=== PATIENT | female | born 1985 | race Caucasian/White ===

== ENCOUNTER 2020-04-30 10:33 | Emergency (ER) | payer BC, SELFPAY ==
--- NOTE | 2020-04-30 10:42 | ED.URI ---
HPI - URI/Sore Throat General Chief Complaint: Upper Respiratory Infection Stated Complaint: SOB/chest pressure Time Seen by Provider: 04/30/20 10:47 Source: patient and RN notes reviewed Mode of arrival: ambulatory Limitations: no limitations History of Present Illness HPI Narrative: 34 year old female who presents to [facility] care with complaints of cough, sore throat, headache for the past 6 days and also 2 day history of feeling some shortness of breath, denies any acute dyspnea.Patient states that she has recently traveled to [place] with her family, states no one else in household is ill at this time. Patient has event nonlabored respirations,no tachypnea or accessory muscle use, SAO2 100% on room air. MD elicited complaint: cough, sore throat and other (headache) Onset (ago): day(s) (6) Consistency: constant Severity: mild Pain scale (0-10): 2 Able to tolerate fluids by mouth: Yes Exacerbating factors: swallowing Relieving factors: nothing Context: recent travel Associated symptoms: headache, cough and shortness of breath Treatments prior to arrival: acetaminophen Related Data Home Medications Medication Instructions Recorded Confirmed famotidine [Pepcid] 20 mg PO BID 04/30/20 04/30/20 Allergies Allergy/AdvReac Type Severity Reaction Status Date / Time No Known Allergies Allergy Unknown Verified 04/30/20 11:01 Review of Systems Review of Systems: Narrative: CONSTITUTIONAL: Denies fever, chills, or sweats. EYES: Denies visual changes, redness, or discharge. ENT: Denies rhinorrhea, congestion,positive sore throat, no otalgia. CARDIOVASCULAR: Denies chest pain, palpitations, or edema. RESPIRATORY: Denies cough or acute dyspnea, reports feeling short of breath GASTROINTESTINAL: Denies abdominal pain, nausea, vomiting, or diarrhea. GENITOURINARY: Denies dysuria or hematuria. SKIN: Denies rash or itching. MUSCULOSKELETAL: Denies back pain, joint pain, or myalgia. NEUROLOGIC: positive headache, no numbness, or weakness. PSYCHIATRIC: Denies anxiety or depression. All systems reviewed & are unremarkable except as noted in HPI and below PMFSH Past Medical History Medical History (Updated 04/30/20 @ 10:59 by Latonya Nino NP) GERD (gastroesophageal reflux disease) Surgical History Surgical History (Updated 07/22/20 @ 10:59 by Latonya Nino NP) Hx of cholecystectomy Social History Social History (Updated 04/30/20 @ 10:59 by Latonya Nino NP) Smoking status: Never smoker Living arrangements: with family Gender identity (if verbalized by the patient): Female Comments At time of signature, agree with nursing past medical, surgical, social history. There is no relevant family history pertinent to the presenting complaint Exam Narrative: Exam Narrative: GENERAL: Well-appearing, well-nourished, and in no acute distress. HEAD: Normocephalic, atraumatic. EYES: PERRLA and EOMI. ENT: Nares clear, no rhinorrhea or epistaxis. Mucous membranes moist.TM's normal with good light relfex, throat is minimally red with no exudates, lesions or tonsil enlargement. NECK: Supple.mild lymphadenopathy, denies any tenderness to neck CHEST: Clear to auscultation. No respiratory distress.no cough, SAO2 100% on room air HEART: Regular rate and rhythm. No murmur heard. Normal peripheral pulses. ABDOMEN: Soft, nontender, nondistended, normal active bowel sounds. EXTREMITIES: Normal range of motion. No edema. SKIN: Warm, dry, no rash. NEURO: No focal deficits. Alert and oriented x3. MDM - URI/Sore Throat Differential Diagnosis Differential diagnosis: Likely upper respiratory infection, viral infection, pharyngitis and other (strep pharyngitis, COVID) Medical Records Attestation: I reviewed the patient's medical records. Lab Data Attestation: I reviewed the patient's lab results. Lab results narrative: strep screen Critical Care Time Critical Care Time Critical Care Time: No Discharge Plan Discharge Patient
[2020-04-30 10:44] VITALS: BP 118/74; PULSE 86; RESP 20; TEMP 36.7; O2SAT 100
== END 2020-04-30 11:16 | disposition home or self-care (01) ==
PROVIDERS: Emergency Provider Registered Nurse; PCP Nurse Practitioner Adult Health
DX: J02.9 Acute pharyngitis, unspecified (principal); K21.9 Gastro-esophageal reflux disease without esophagitis
CPT/HCPCS: 87081; 87880; 99203; G0463

== ENCOUNTER 2020-08-08 18:47 | Emergency (ER) | payer BC, SELFPAY ==
--- NOTE | ~2020-08-08 | CT_ITS ---
EXAMINATION: CT cervical spine wo con DATE: 08/08/2020 20:38 INDICATION: Neck pain after trauma TECHNIQUE: Computed tomography (CT) of the cervical spine was performed without intravenous contrast. The dose-length product was 187 mGy-cm. Automated exposure control and iterative reconstruction tech nique were employed. COMPARISON: None FINDINGS: Straightening of cervical lordosis, likely due to muscle spasm or patient positioning. Mild uncinate hypertrophy at multiple levels. No acute fracture, subluxation or dislocation. Vertebral iain dy heights are maintained. Lung apices are normal. No significant paraspinal soft tissue abnormality. Odontoid process within normal limits. Lateral masses are normally aligned. No evidence for perched facet. IMPRESSION: 1. No acute fracture. Reviewed, dictated and finalized at location A. IMPRESSION: 1. No acute fracture.
[2020-08-08 19:04] VITALS: BP 114/67; PULSE 85; RESP 18; TEMP 36.7; O2SAT 100
--- NOTE | 2020-08-08 21:17 | ED.GENADULT ---
HPI - General Adult General Chief complaint: Head Injury Stated complaint: possible head injury Time Seen by Provider: 08/08/20 19:33 Source: patient Mode of arrival: ambulatory Limitations: no limitations History of Present Illness HPI narrative: Patient is a 35-year-old female who presents with head injury that occurred earlier today patient stood up and struck the top of her head did not lose consciousness has since had mild headache and nausea as well as some midline neck pain and upper thoracic left-sided back pain patient presents in no distress does not wish for any pain medication at this time and is otherwise resting comfortably in no distress patient denies other complaints or injuries Related Data Allergies Allergy/AdvReac Type Severity Reaction Status Date / Time No Known Allergies Allergy Unknown Verified 08/08/20 19:08 Review of Systems Review of Systems: All systems reviewed & are unremarkable except as noted in HPI and below PMFSH Past Medical History Medical History GERD (gastroesophageal reflux disease) Surgical History Surgical History Hx of cholecystectomy Social History Social History Smoking status: Never smoker Gender identity (if verbalized by the patient): Female Exam Narrative: Exam Narrative: GENERAL: Well-appearing, well-nourished, and in no acute distress. HEAD: Normocephalic, atraumatic. EYES: PERRLA and EOMI. ENT: Nares clear, no rhinorrhea or epistaxis. Mucous membranes moist. NECK: Supple. No adenopathy or masses. CHEST: Clear to auscultation. No respiratory distress. No wheezes rales or rhonchi HEART: Regular rate and rhythm. No murmur heard. EXTREMITIES: Normal range of motion. No edema midline cervical tenderness left thoracic paraspinal tenderness. SKIN: Warm, dry, no rash. NEURO: No focal deficits. Alert and oriented x3. Cranial nerves II through XII grossly intact PSYCH: Normal mood and affect. Course Course Emergency Course: Patient in the room in no distress aware of case findings treatment plan and diagnosis Vital Signs Vital signs: Vital Signs Temperature 98.1 F 08/08/20 19:04 Pulse Rate 85 08/08/20 19:04 Respiratory Rate 18 08/08/20 19:04 Blood Pressure 114/67 08/08/20 19:04 Pulse Oximetry 100 08/08/20 19:04 Temperature 98.1 F 08/08/20 19:04 Pulse Rate 85 08/08/20 19:04 Respiratory Rate 18 08/08/20 19:04 Blood Pressure 114/67 08/08/20 19:04 Pulse Oximetry 100 08/08/20 19:04 Medical Decision Making MDM Narrative Medical decision making narrative: Patients injury or pain is consistent with musculoskeletal etiology. No signs of neurological or vascular compromise on exam. Compartments and tisues are soft without signs of compartment syndrome. Pain is felt appropriate for further evaluation on an outpatient basis. Vital Signs Vital Signs: Vital Signs Temperature 98.1 F 08/08/20 19:04 Pulse Rate 85 08/08/20 19:04 Respiratory Rate 18 08/08/20 19:04 Blood Pressure 114/67 08/08/20 19:04 Pulse Oximetry 100 08/08/20 19:04 Temperature 98.1 F 08/08/20 19:04 Pulse Rate 85 08/08/20 19:04 Respiratory Rate 18 08/08/20 19:04 Blood Pressure 114/67 08/08/20 19:04 Pulse Oximetry 100 08/08/20 19:04 Lab Data Labs: UCG Bedside Result Negative Reference Range: Negative Discharge Plan Discharge Clinical Impression: Closed head injury, Cervical muscle strain Patient Disposition: Home, Self-Care Condition: Stable Instructions: Antibiotic Form, Head Injury (ED) Additional Instructions: Follow up with your primary care doctor in 5-7 days for re-evaluation. Go to ER for worsening pain, vision changes, nausea/vomiting, fever/chills, weakness, chest
[2020-08-08 21:25] VITALS: BP 118/65; PULSE 68; RESP 16; O2SAT 100
== END 2020-08-08 21:25 | disposition home or self-care (01) ==
PROVIDERS: Emergency Provider Emergency Medicine; PCP Nurse Practitioner Adult Health
DX: S09.90XA Unspecified injury of head, initial encounter (principal); S16.1XXA Strain of muscle, fascia and tendon at neck level, initial encounter; K21.9 Gastro-esophageal reflux disease without esophagitis; W22.8XXA Striking against or struck by other objects, initial encounter
CPT/HCPCS: 72125; 81025; 99284

== ENCOUNTER 2024-08-14 10:08 | Outpatient (CLI) | payer BC, SELFPAY ==
[2024-08-14 19:10] LABS: Basophils Absolute Auto 0.1 K/mm3 (0.0-0.1); Basophils Percent Auto 1.1 % (0.2-1.2); Eosinophils Absolute Auto 0.3 K/mm3 (0-0.3); Eosinophils Percent Auto 3.6 % (0-4.4); Hematocrit 43.7 % (37.0-47.0); Hemoglobin 14.7 g/dL (12.0-15.0); Immature Granulocyte Absolute 0.02 K/mm3 (0.00-0.031); Immature Granulocyte Percent A 0.2 % (0-0.5); Lymphocytes Percent Auto 28.3 % (18.3-44.2); Mean Corpuscular HGB Conc 33.6 g/dl (32-36); Mean Corpuscular Hemoglobin 30.1 pg (26-34); Mean Corpuscular Volume 89.5 fl (80-100); Mean Platelet Volume 10.9 fl (7.4-10.4); Monocytes Absolute Auto 0.7 K/mm3 (0.1-0.6); Monocytes Percent Auto 8.6 % (2.6-8.5); Neutrophils Absolute Auto 4.7 K/mm3 (1.3-6.7); Neutrophils Percent Auto 58.2 % (45.5-73.1); Platelet Count Result 283 k/mm3 (150-375); Red Blood Count 4.88 M/mm3 (4.2-5.4); Red Cell Distribution Width 11.9 % (11.5-14.5); White Blood Count 8.1 K/mm3 (4.5-10.0)
[2024-08-14 19:12] LABS: Alanine Aminotransferase 26 U/L (6-35); Albumin Level 4.4 g/dL (3.5-5.1); Alkaline Phosphatase 58 U/L (38-126); Anion Gap 10 mmol/L (4-12); Aspartate Amino Transferase 31 U/L (14-36); Bilirubin,Total 0.5 mg/dL (0.2-1.3); Blood Urea Nitrogen 17 mg/dL (7-17); Calcium 9.2 mg/dL (8.4-10.2); Carbon Dioxide 27 mmol/L (22-30); Chloride 103 mmol/L (98-107); Cholesterol 195 mg/dL (0-200); Estimated Glomerular Filt Rate > 60; Glucose 91 mg/dL (65-110); HDL Direct 53 mg/dL; Magnesium 1.9 mg/dL (1.6-2.3); Potassium 4.4 mmol/L (3.4-5.0); Sodium 140 mmol/L (137-145); Triglycerides 94 mg/dL (<150)
[2024-08-14 19:55] LABS: LDL Cholesterol Direct 95 mg/dL
[2024-08-14 20:04] LABS: Iron 112 ug/dL (37-170)
[2024-08-14 20:13] LABS: Percent Iron Saturation 32 % (20-50)
[2024-08-14 20:52] LABS: Vitamin B12 > 1000.0 pg/mL (239-931)
[2024-08-14 20:54] LABS: Hemoglobin A1C 4.8 % (<5.7)
[2024-08-17 11:11] LABS: Vitamin D 25 Hydroxy 46.7 ng/mL
== END 2024-08-14 10:09 | disposition home or self-care (01) ==
LOC: ANHGOSHLAB 10:09
PROVIDERS: PCP Nurse Practitioner Family; Visit Provider Nurse Practitioner Family
DX: F41.9 Anxiety disorder, unspecified (principal); G25.81 Restless legs syndrome; K21.9 Gastro-esophageal reflux disease without esophagitis; R53.83 Other fatigue; E53.9 Vitamin B deficiency, unspecified; E66.9 Obesity, unspecified; Z13.220 Encounter for screening for lipoid disorders; R73.01 Impaired fasting glucose; E55.9 Vitamin D deficiency, unspecified
CPT/HCPCS: 36415; 80053; 80061; 82306; 82607; 82728; 83036; 83540; 83550; 83735; 84443; 85025

== ENCOUNTER 2024-09-27 08:16 | Outpatient (CLI) | payer BC, SELFPAY ==
[2024-10-15 20:27] VITALS: BMI 29.8
--- NOTE | 2024-10-15 20:27 | WPDHOMESLEEP ---
Sleep Study - Home Unattended Date of Study: 09/27/24 Ordering Provider: ANGEL Whitney-C Interpreting Provider: Shey Marinelli, DO Home Sleep Study Type: Watch PAT Height: 1.63 m Weight: 78.925 kg Body Mass Index: 29.8 Neck Circumference (inches): 13 [place]: 11 Reason for Sleep Study Daytime hypersomnia Sleep History The patient is a 39-year-old female that comes sleep study ordered by her physician for evaluation of sleep apnea.? The patient admits to snoring loudly, excessive daytime sleepiness, difficulty falling and staying asleep as well as on 1 to behaviors during sleep.? The patient denies interruptions in breathing while asleep.? She denies choking or gasping at night.? She denies having trouble breathing on her back.? She does have morning headaches.? She denies having a dry or sore mouth/throat in the morning.? She denies nocturnal heartburn.? She denies nocturia.? She does have difficulty returning to sleep if she wakes up throughout the night.? She denies any hypnotic or sedative use.? She denies feeling anxious about sleep.? She denies sleep paralysis, cataplexy and hypnagogic/hypnopompic hallucinations.? She does feel tired or sleepy during the day.? She does feel tired in the morning.? She does have the urge to fall asleep during the day.? She denies feeling drowsy while driving.? She does not clench or grind her teeth.? She states that she does kick or jerk her legs excessively.? She does have a restless feeling in her legs that is accompanied by an urge to move her legs.? The restless feeling is worse with rest but it does not improve with activity.? The restless?feeling is predominantly present in the evening and does cause a disturbance in her sleep.? She goes to bed at 10:30 p.m. on work days and 11:30 p.m. on her days off.? It takes her 1 hour to fall asleep.? She gets 5 hours of sleep per night.? Her sleep is not at all restorative on her days off.? She denies taking any planned naps.? She denies dream enactment behavior.? She denies sleep walking.? She consumes 1-2 cups of caffeinated beverages per day.? She denies tobacco and alcohol use.? She denies exercising on a regular basis. [facility] Past Medical History Medical History GERD (gastroesophageal reflux disease) Surgical History Surgical History Hx of cholecystectomy Family History Family History (Updated 09/18/24 @ 09:05 by Rinku Calhoun MA) Father Cerebrovascular accident Social History Social History Smoking status: Never smoker Living arrangements: with family Gender identity (if verbalized by the patient): Female Medications Home Medications ?Medication ?Instructions ?Recorded ?Confirmed ?Type ubrogepant 50 mg tablet (Ubrelvy) 50 mg PO ONCE #14 tabs 08/14/24 09/18/24 Rx rizatriptan 5 mg disintegrating See Rx Instructions PO .COMPLEX 08/17/24 09/18/24 Rx tablet #14 tabs azithromycin 250 mg tablet See Rx Instructions PO .COMPLEX #6 09/18/24 09/18/24 Rx tabs fluoxetine 40 mg capsule 40 mg PO DAILY #30 caps 09/18/24 09/18/24 Rx prednisone 50 mg tablet 50 mg PO DAILY #5 tabs 09/18/24 09/18/24 Rx propranolol 60 mg capsule,24 60 mg PO DAILY #30 caps 09/18/24 09/18/24 Rx hr,extended release tirzepatide (weight loss) 2.5 2.5 mg (0.5 mL) subcut WEEKLY #2 mL 10/04/24 Rx mg/0.5 mL subcutaneous pen injector (Zepbound) Sleep Procedure The sleep study was completed using iQVCloudPAT a technically adequate device with seven channels: peripheral arterial tone, actigraphy, body position, snore, respiratory movement, pulse oximetry, sleep staging, and heart rate. Prior to using the device, the patient received verbal and written instructions for its application and was provided with the help desk phone number for additional telephonic instruction with 24-hour availability of qualified personnel to answer questions. The study was scored using CMS guidelines. Sleep Architecture The total recording time is 8 hrs, 27 min. The total sleep time is 7 hrs, 42 min. Sleep latency is 10 minutes. REM latency is 181 minutes. The patient had 5 episodes of waking. Sleep architecture shows 18.0% deep sleep, 60.9% light sleep, and (as % Total Sleep Time) showed NREM (Light 60.9%; Deep 18.0%), and a 21.1% stage REM. The patient spent 82.9% of total sleep time in the supine position. Sleep efficiency was 91.12. Respiratory Analysis The overall AHI (pAHI 3%:) is 2.2. The central AHI is 0.3. The AHI was 1.0 in NREM and 6.8 in REM sleep. The AHI was 2.5 in Supine and 0.8 in Non-supine sleep. Percent of Jamal Dowd respirations is 0.0. Oximetry Data The oxygen desaturation index (ELSIE 4%:) is 0.4. The mean saturation is 94%, and the lowest saturation is 91%. Time spent with saturation < 88% is 0.0 minutes. Snoring Profile Snoring average intensity is 40 dB. The patient snored above 45 decibels for 5.0 minutes, 1.1% of sleep time. Cardiac Profile The average pulse rate is 69 beats per minutes. The lowest pulse rate is 55 bpm. The highest pulse rate reported is 96 bpm. Atrial fibrillation was not detected. Premature beats occur <0.1 per minute. Assessment and Plan Assessment and Plan (1) Sleep disturbance: Code(s): G47.9 - Sleep disorder, unspecified Status: Acute Assessment and Plan: The patient had an overall AHI of 2.2 with desaturation down to 91%. This is not consistent with sleep-disordered breathing. If there is still a concern for a sleep disorder, I recommend that the patient have a split study with the use of a hypnotic (Lunesta 2-3 mg or Ambien 5-10 mg) to ensure we obtain enough sleep data. The patient's sleep history is suggestive of Restless Leg Syndrome. I recommend that the patient have a serum ferritin drawn for evaluation of iron deficiency anemia. If the patient has a serum ferritin less than 75 ng/mL, I recommend starting a daily iron supplement and a Vitamin C supplement for better absorption. If the serum ferritin is greater than 75 ng/mL, I recommend starting a dopamine agonist and titrating the dose until symptoms resolve. There are nonpharmacological methods to treat limb movements including daily exercise, stretching calf muscles before bed, avoiding excessive amounts of caffeine and alcohol, vitamin B supplementation, magnesium lotion massaged into legs before bed, and use of a weighted blanket. Data The data obtained during this sleep study is adequate for interpretation. Certification This sleep study has been reviewed by a board certified sleep medicine physician.
== END 2024-09-28 12:03 | disposition home or self-care (01) ==
PROVIDERS: PCP Nurse Practitioner Family; Visit Provider Nurse Practitioner Family
DX: G47.9 Sleep disorder, unspecified (principal); R53.83 Other fatigue
CPT/HCPCS: 95800